=== PATIENT | male | born 1990 | race Caucasian/White ===

== ENCOUNTER 2024-06-22 01:56 | Emergency (ER) | payer BC ==
[2024-06-22 02:01] VITALS: TEMP 98.6
[2024-06-22 02:23] VITALS: RESP 18
[2024-06-22] MEDS: MECLIZINE 12.5 MG TAB PO STA (02:50)
[2024-06-22] MEDS: SODIUM CHLORIDE 0.9% 1,000 ML IV ONE (02:50)
[2024-06-22 02:59] LABS: Basophils # (A) 0.1 k/uL (0-0.2); Basophils % (A) 1 %; Eosinophils # (A) 0.1 k/uL (0-0.7); Eosinophils % (A) 1 %; HCT 44.9 % (39.0-53.0); HGB 15.1 gm/dL (13.0-17.5); Lymphocytes # (A) 1.1 k/uL (1.0-4.8); Lymphocytes % (A) 16 %; MCHC 33.5 g/dL (31.0-37.0); MCV 80.6 fL (80.0-100.0); Mean Platelet Volume 9.4; Monocytes # (A) 0.4 k/uL (0-1.0); Monocytes % (A) 6 %; Neutrophils # (A) 5.2 k/uL (1.3-7.7); Neutrophils % (A) 75 %; Platelet Count 155 k/uL (150-450); RBC 5.57 m/uL (4.30-5.90); RDW 15.5 % (11.5-15.5); WBC 6.9 k/uL (3.8-10.6)
[2024-06-22 03:09] LABS: ALT 39 U/L (4-49); AST 34 U/L (17-59); African American GFR (CKD) >90 (>60 ml/min/1.73 sqM); Albumin 4.4 g/dL (3.5-5.0); Alkaline Phosphatase 72 U/L (38-126); Anion Gap 9 mmol/L; Blood Urea Nitrogen 19 mg/dL (9-20); Calcium 8.9 mg/dL (8.4-10.2); Carbon Dioxide 20 mmol/L (22-30); Chloride 105 mmol/L (98-107); Glucose 135 mg/dL (74-99); Non-African American GFR(CKD) >90 (>60 ml/min/1.73 sqM); Potassium 4.2 mmol/L (3.5-5.1); Sodium 134 mmol/L (137-145); Total Bilirubin 1.1 mg/dL (0.2-1.3); Total Protein 7.5 g/dL (6.3-8.2)
[2024-06-22 04:42] VITALS: BP 139/74; PULSE 110
--- NOTE | 2024-06-22 04:56 | ED ---
General Adult HPI - General Chief complaint: Dizziness Stated complaint: Dizziness Time Seen by Provider: 06/22/24 02:00 Source: patient Mode of arrival: ambulatory Limitations: no limitations - History of Present Illness Initial comments: 34-year-old male who presents emergency department with dizziness. States it started around 5 PM. He had sudden onset of room spinning sensation. He was at work when he came on. He states he tried to sit down and his symptoms would not improve. Around 12:30 AM he began having a bloody nose. Patient was concerned that his blood pressure was high. He has never had the symptoms before. He does admit that he has had a recent illness including a cough and some head pressure. Does have some mild shortness of breath. No chest or abdominal pain. No ataxia. He denies any headache or visual changes. No speech deficit or confusion. He has no medical problems. No other alleviating, precipitating modifying factors - Related Data Previous Rx's Medication Instructions Recorded Meclizine [Antivert] 25 mg PO Q8HR PRN #20 tab 06/22/24 amLODIPine [Norvasc] 2.5 mg PO DAILY #30 tablet 06/22/24 Allergies Allergy/AdvReac Type Severity Reaction Status Date / Time No Known Allergies Allergy Verified 06/22/24 01:57 Review of Systems ROS Statement: Those systems with pertinent positive or pertinent negative responses have been documented in the HPI. ROS Other: All systems not noted in ROS Statement are negative. Past Medical History Past Medical History: No Reported History History of Any Multi-Drug Resistant Organisms: None Reported Past Surgical History: No Surgical Hx Reported Past Psychological History: No Psychological Hx Reported Smoking Status: Never smoker Past Alcohol Use History: None Reported Past Drug Use History: None Reported General Exam Limitations: no limitations General appearance: alert, in no apparent distress Head exam: Present: atraumatic, normocephalic, normal inspection Eye exam: Present: normal appearance, PERRL, EOMI. Absent: scleral icterus, conjunctival injection, periorbital swelling ENT exam: Present: normal exam, mucous membranes moist Neck exam: Present: normal inspection. Absent: tenderness, meningismus, lymphadenopathy Respiratory exam: Present: normal lung sounds bilaterally. Absent: respiratory distress, wheezes, rales, rhonchi, stridor Cardiovascular Exam: Present: normal rhythm, tachycardia, normal heart sounds. Absent: systolic murmur, diastolic murmur, rubs, gallop, clicks GI/Abdominal exam: Present: soft, normal bowel sounds. Absent: distended, tenderness, guarding, rebound, rigid Extremities exam: Present: normal inspection, full ROM, normal capillary refill. Absent: tenderness, pedal edema, joint swelling, calf tenderness Back exam: Present: normal inspection Neurological exam: Present: alert, oriented X3, CN II-XII intact Psychiatric exam: Present: normal affect, normal mood Skin exam: Present: warm, dry, intact, normal color. Absent: rash Course Vital Signs 06/22/24 06/22/24 06/22/24 01:58 02:22 04:41 Temperature 98.6 F Pulse Rate 125 H 112 H 110 H Respiratory 22 18 18 Rate Blood Pressure 182/118 169/67 139/74 O2 Sat by Pulse 97 97 97 Oximetry Medical Decision Making - Medical Decision Making Was pt. sent in by a medical professional or institution (, PA, VALVE INSPECTOR, urgent care, hospital, or longterm...) When possible be specific @ -No Did you speak to anyone other than the patient for history (EMS, parent, family, police, friend...)? What history was obtained from this source @ -Spoke with EMS for history Did you review nursing and triage notes (agree or disagree)? Why? @ -I reviewed and agree with nursing and triage notes Were old charts reviewed (outside hosp., previous admission, EMS record, old EKG, old radiological studies, urgent care reports/EKG's, longterm records)? Report findings @ -No old charts were reviewed Differential Diagnosis (chest pain, altered mental status, abdominal pain women, abdominal pain men, vaginal bleeding, weakness, fever, dyspnea, syncope, headache, dizziness, GI bleed, back pain, seizure, CVA, palpatations, mental health, musculoskeletal)? @ -Differential Dizziness: Benign paroxysmal positional Vertigo, Meniere's disease, otitis media, acoustic neuroma, vertebrobasilar insufficiency, cerebellar stroke, encephalitis, hypovolemic, arrhythmia, coronary artery syndrome, anemia, this is not meant to be an all-inclusive list EKG interpreted by me (3pts min.). @ -Yes and demonstrates sinus tachycardia with rate of 115. WA interval 147. QRS 86. QTc of 388. No acute ST segment elevations or depressions X-rays interpreted by me (1pt min.). @ -Yes and demonstrates no acute process CT interpreted by me (1pt min.). @ -None done U/S interpreted by me (1pt. min.). @ -None done What testing was considered but not performed or refused? (CT, X-rays, U/S, labs)? Why? @ -CT brain was considered however patient does feel improved after dose of meclizine What meds were considered but not given or refused? Why? @ -None Did you discuss the management of the patient with other professionals (connie gentile i.e. , PA, VALVE INSPECTOR, lab, RT, psych nurse, neonatal social worker, summer analyst, teacher, law enforcement officer, immigration case worker)? Give summary @ -No Was smoking cessation discussed for >3mins.? @ -No Was critical care preformed (if so, how long)? @ -No Were there social determinants of health that impacted care today? How? (Homelessness, low income, unemployed, alcoholism, drug addiction, transportation, low edu. Level, literacy, decrease access to med. care, alf, rehab)? @ -No Was there de-escalation of care discussed even if they declined (Discuss DNR or withdrawal of care, Hospice)? DNR status @ -No What co-morbidities impacted this encounter? (DM, HTN, Smoking, COPD, CAD, Cancer, CVA, ARF, Chemo, Hep., AIDS, mental health diagnosis, sleep apnea, morbid obesity)? @ -Obesity Was patient admitted / discharged? Hospital course, mention meds given and route, prescriptions, significant lab abnormalities, going to OR and other pertinent info. @ -Upon arrival patient seen and evaluated in room 2. Thorough history and physical exam was performed. IV access was established. Laboratory studies were conducted. Chest x-ray was performed. Patient is given a dose of meclizine. He is able to get up and ambulate without difficulty after a dose of this medication. He does have a high heart rate and high blood pressure however this also improves over the course of his visit without intervention. I did discuss these results with the patient. Informed him that he needs to keep a blood pressure log. I would like him to follow-up with his doctor within 2 to 4 days and take this log with him. He is to return for any new or worsening symptoms. Patient was agreeable to this plan he was discharged home in stable condition Undiagnosed new problem with uncertain prognosis? @ -No Drug Therapy requiring intensive monitoring for toxicity (Heparin, Nitro, Insulin, Cardizem)? @ -No Were any procedures done? @ -No Diagnosis/symptom? @ -Acute vertigo, accelerated hypertension Acute, or Chronic, or Acute on Chronic? @ -Acute Uncomplicated (without systemic symptoms) or Complicated (systemic symptoms)? @ -Complicated Side effects of treatment? @ -No Exacerbation, Progression, or Severe Exacerbation? @ -No Poses a threat to life or bodily function? How? (Chest pain, [place], [place], pneumonia, PE, COPD, DKA, ARF, appy, cholecystitis, CVA, Diverticulitis, Homicidal, Suicidal, threat to staff... and all critical care pts) @ -No - Lab Data Result diagrams: 06/22/24 02:47 06/22/24 02:47 Lab Results 06/22/24 06/22/24 06/22/24 Range/Units 02:47 02:47 02:47 WBC 6.9 (3.8-10.6) k/uL RBC 5.57 (4.30-5.90) m/uL Hgb 15.1 (13.0-17.5) gm/dL Hct 44.9 (39.0-53.0) % MCV 80.6 (80.0-100.0) fL MCH 27.0 (25.0-35.0) pg MCHC 33.5 (31.0-37.0) g/dL RDW 15.5 (11.5-15.5) % Plt Count 155 (150-450) k/uL MPV 9.4 Neutrophils % 75 % Lymphocytes % 16 % Monocytes % 6 % Eosinophils % 1 % Basophils % 1 % Neutrophils # 5.2 (1.3-7.7) k/uL Lymphocytes # 1.1 (1.0-4.8) k/uL Monocytes # 0.4 (0-1.0) k/uL Eosinophils # 0.1 (0-0.7) k/uL Basophils # 0.1 (0-0.2) k/uL D-Dimer (<0.60) mg/L FEU Sodium 134 L (137-145) mmol/L Potassium 4.2 (3.5-5.1) mmol/L Chloride 105 (98-107) mmol/L Carbon Dioxide 20 L (22-30) mmol/L Anion Gap 9 mmol/L BUN 19 (9-20) mg/dL Creatinine 0.81 (0.66-1.25) mg/dL Est GFR (CKD-EPI)AfAm >90 (>60 ml/min/1.73 sqM) Est GFR (CKD-EPI)NonAf >90 (>60 ml/min/1.73 sqM) Glucose 135 H (74-99) mg/dL Calcium 8.9 (8.4-10.2) mg/dL Total Bilirubin 1.1 (0.2-1.3) mg/dL AST 34 (17-59) U/L ALT 39 (4-49) U/L Alkaline Phosphatase 72 (38-126) U/L Troponin I <0.012 (0.000-0.034) ng/mL Total Protein 7.5 (6.3-8.2) g/dL Albumin 4.4 (3.5-5.0) g/dL 06/22/24 Range/Units 02:47 WBC (3.8-10.6) k/uL RBC (4.30-5.90) m/uL Hgb (13.0-17.5) gm/dL Hct (39.0-53.0) % MCV (80.0-100.0) fL MCH (25.0-35.0) pg MCHC (31.0-37.0) g/dL RDW (11.5-15.5) % Plt Count (150-450) k/uL MPV Neutrophils % % Lymphocytes % % Monocytes % % Eosinophils % % Basophils % % Neutrophils # (1.3-7.7) k/uL Lymphocytes # (1.0-4.8) k/uL Monocytes # (0-1.0) k/uL Eosinophils # (0-0.7) k/uL Basophils # (0-0.2) k/uL D-Dimer 0.41 (<0.60) mg/L FEU Sodium (137-145) mmol/L Potassium (3.5-5.1) mmol/L Chloride (98-107) mmol/L Carbon Dioxide (22-30) mmol/L Anion Gap mmol/L BUN (9-20) mg/dL Creatinine (0.66-1.25) mg/dL Est GFR (CKD-EPI)AfAm (>60 ml/min/1.73 sqM) Est GFR (CKD-EPI)NonAf (>60 ml/min/1.73 sqM) Glucose (74-99) mg/dL Calcium (8.4-10.2) mg/dL Total Bilirubin (0.2-1.3) mg/dL AST (17-59) U/L ALT (4-49) U/L Alkaline Phosphatase (38-126) U/L Troponin I (0.000-0.034) ng/mL Total Protein (6.3-8.2) g/dL Albumin (3.5-5.0) g/dL Disposition Clinical Impression: High blood pressure, Vertigo Disposition: HOME SELF-CARE Condition: Stable Instructions (If sedation given, give patient instructions): Dizziness (ED) Additional Instructions: Please purchase a blood pressure cuff. Check your blood pressure 2-3 times per day. Keep a log. I am providing you with a prescription for a blood pressure medication however you are only to take it once a day if your blood pressure persistently remains 160/90. Otherwise just keep the log and follow-up with your primary care doctor to determine whether you need to be on high blood pressure medications. You may also additionally use the meclizine for any type of dizziness however if your symptoms of dizziness persist, you will need an evaluation by a ear nose and throat doctor. Return for any new or worsening symptoms Prescriptions: Meclizine [Antivert] 25 mg PO Q8HR PRN #20 tab PRN Reason: Vertigo amLODIPine [Norvasc] 2.5 mg PO DAILY #30 tablet Is patient prescribed a controlled substance at d/c from ED?: No Referrals: None,Stated [Primary Care Provider] - 1-2 days Andrew Byrd MD [STAFF PHYSICIAN] - 1-2 days Time of Disposition: 04:56
--- NOTE | 2024-06-22 05:10 | XR ---
EXAMINATION TYPE: XR chest 2V DATE OF EXAM: 06/22/2024 CLINICAL HISTORY: Cough and tachycardia. TECHNIQUE: Frontal and lateral views of the chest are obtained. COMPARISON: Chest CT 2012. FINDINGS: Overlying EKG leads are present. There is no suspicious focal air space opacity, pleural e ffusion, or pneumothorax seen. The cardiac silhouette size is stable and within normal limits. The osseous structures are intact. IMPRESSION: No acute process. [facility], , 06/22/2024 5:08 AM
== END 2024-06-22 05:04 | disposition home or self-care (01) ==
LOC: EC 01:56
DX: I10 Essential (primary) hypertension (principal); R42 Dizziness and giddiness; R00.0 Tachycardia, unspecified; E66.9 Obesity, unspecified; Z68.43 Body mass index [BMI] 50.0-59.9, adult
CPT/HCPCS: 36415; 71046; 80053; 84484; 85025; 85379; 93005; 96360; 99284

== ENCOUNTER → 2024-10-19 | Outpatient (CLI) | payer BC | END | disposition home or self-care (01) | LOC: LABWHC1 10:40 | PROVIDERS: ATTEND Internal Medicine | DX: R79.9 Abnormal finding of blood chemistry, unspecified (principal) | CPT/HCPCS: 36415; 83519; 84681; 86337 ==

== ENCOUNTER → 2024-11-01 | Outpatient (CLI) | payer BC ==
--- NOTE | 2024-11-01 16:37 | CT ---
EXAMINATION TYPE: CT abdomen pelvis w con DATE OF EXAM: 11/01/2024 COMPARISON: None CLINICAL INDICATION: Male, 34 years old with history of K40.90 UNIL INGUINAL HERNIA, W/O OBST OR GANG R, NO; PHH, LLQ abdominal pain, suspects a hernia. TECHNIQUE: Performed with Oral Contrast and with IV Contrast, patient injected with 100 ml mL of Isovue 300. CT DLP: 3117.[address] CTDI: mGy Automated exposure control for dose reduction was used. FINDINGS: The lung bases are clear. The gallbladder is normal without distention, wall thickening, pericholecystic fluid or gallstones. T here is no biliary ductal dilatation. There is no focal mass or organomegaly involving the liver, pancreas, spleen or adrenal glands. There is no solid renal mass or hydronephrosis and there is homogeneous contrast enhancement of the r enal parenchyma. The caliber the abdominal aorta is normal is no retroperitoneal adenopathy or hemorr evie. The bowel loops are normal in caliber and there is no evidence of dilatation or obstruction. No infla mmatory changes are identified in the bowel wall or mesentery. There is no free intraperitoneal air or fluid. No pelvic mass, free fluid, abscess or adenopathy. The osseous structures and soft tissues are intact. IMPRESSION: No significant abnormality seen. [facility], Workstation: [id number] 11/01/2024 4:34 PM
== END | disposition home or self-care (01) ==
LOC: RADCTMAIN 14:09
PROVIDERS: ATTEND Internal Medicine
DX: K40.90 Unilateral inguinal hernia, without obstruction or gangrene, not specified as recurrent (principal)
CPT/HCPCS: 74177; Q9967

== ENCOUNTER → 2025-02-02 | Outpatient (CLI) | payer BC ==
--- NOTE | 2025-02-07 10:56 | P.PCN ---
Date of Procedure: 02/02/25 Operative Findings: Home sleep study report History This is a 34-year-old male patient, morbidly obese with concern about the weight gain over the past few years, referred to me for sleep apnea evaluation. The patient has loud snoring, sleep fragmentation, witnessed apneas along with chronic fatigue and tiredness and sleepiness along with excessive daytime hypersomnia and sleepiness. His current [place] score is at 18. 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 The patient goes to bed at around 2 AM and gets out of bed at noon time. He works afternoon shifts. He feels not refreshed and he feels that he is at the high risk of falling asleep while driving. Notes have any motor vehicle accidents because of feeling drowsy or sleepy. No grinding. No sleep walking. No sleep talking. No nocturnal chest pain heartburn or shortness of breath. No restlessness in the lower extremities. His current [place] score is at 18 and the patient can easily fall asleep if left unstimulated. Unable to complete a TV show as he falls asleep. No vivid dreams. No hypnagogic hallucinations. No cataplexy. Sleep is fragmented and the patient wakes up at least 4 times in the middle of the night, and he occasionally uses the bathroom to urinate. His blood pressure was noted to be quite elevated on today's evaluation. The same time, the patient was diagnosed having diabetes mellitus with elevated HbA1c levels. The patient was started on Lantus insulin through his primary care physician and his blood sugars being managed carefully. He drinks coffee and occasional energy drinks/monster. No smoking. No substance abuse. No head trauma. No stroke. No congestion heart failure. Technical description The [employer] system was used to complete a small sleep study. This is a type III home sleep study evaluation. This evaluation was done in 6 hours 41 minutes. The study started at 2:20 AM and ended at 9:01 AM. There was a total of 6 hours and 29 minutes of flow monitoring and a total of 6031 minutes of oxyg en saturation monitoring. This was an adequate study Results The respiratory analysis showed a total of 21 obstructive apneas and 232 obstructive hypopneas. The resulting AHI was 39 consistent with severe obstructive sleep apnea Oxygenation analysis The baseline pulse ox while awake was 96%. Average pulse ox during sleep was 91% and the patient spent approximately 1 hour and 20 minutes of the sleep time below pulse ox of 89% with a minimum pulse ox of 74% Cardiac summary Average heart rate was 92 with a minimum heart rate of 60 and a maximum heart of 116 Assessment Severe symptomatic obstructive sleep apnea with an AHI of 39 Severe nocturnal oxygen saturation second obstructive sleep apnea Chronic hypersomnia with an [place] score of 18. Loud snoring, sleep fragmentation along with chronic hypersomnia and sleepiness, likely related to obstructive sleep apnea Obesity with a BMI of 58.2 Hypertension, current blood pressure is quite elevated Diabetes mellitus type 2 Plan Will proceed with an immediate CT Titration for severe symptomatic obstructive sleep apnea. The patient was asked not to drive until his sleep apnea is adequately diagnosed and treated. If he has to drive, recommend only short distances with extreme precautions specially if he is feeling drowsy or sleepy. Encourage weight loss Maintain regular sleep schedule Maintain good sleep hygiene measures Will continue to follow.
== END ==
LOC: 3 N SLEEP 10:50
PROVIDERS: ATTEND Internal Medicine Critical Care Medicine
DX: G47.33 Obstructive sleep apnea (adult) (pediatric) (principal); E66.9 Obesity, unspecified; Z68.43 Body mass index [BMI] 50.0-59.9, adult; I10 Essential (primary) hypertension; E11.9 Type 2 diabetes mellitus without complications